=== PATIENT | female | born 1940 | race Caucasian/White ===

== ENCOUNTER 2020-10-28 12:32 | Inpatient (IN) | payer MEDICARE, BC ==
[~2020-10-28] VITALS: Ht 162.6 cm; Wt 100.8 kg
[~2020-10-28 12:32] MED LIST: NOHOMEMEDICATIONS
[2020-10-28 12:34] VITALS: BP 104/79
[2020-10-28] MEDS ORDERED: ASA81BEC PO (12:36)
[2020-10-28] MEDS ORDERED: VITAMIN D310 MCG PO (12:37)
[2020-10-28] MEDS ORDERED: CO Q-1010 MG PO (12:37)
[2020-10-28] MEDS ORDERED: PRAVACHOL40 MG PO (12:37)
[2020-10-28] MEDS ORDERED: THERAGRAN-M PR1 EAC1 PO (12:37)
[2020-10-28 12:51] LABS: ABSOLUTE BASOPHILS 0.1 thou/uL (0.0-0.2); ABSOLUTE EOSINOPHILS 0.1 thou/uL (0.0-0.7); ABSOLUTE LYMPHOCYTES 1.3 thou/uL (0.8-5.3); ABSOLUTE MONOCYTES 0.5 thou/uL (0.0-1.2); ABSOLUTE NEUTROPHILS 4.1 thou/uL (1.6-8.1); BASOPHILS 0.9 %; EOSINOPHILS 1.7 %; HEMATOCRIT 45.5 % (37.0-47.0); LYMPHOCYTES 21.5 %; MCH 29.3 pg (26.0-34.0); MCV 88.8 fL (80.0-100.0); MONOCYTES 7.7 %; MPV 9.6 fl. (7.2-11.1); NUCLEATED RBCS 0 /100WBC; PLATELET COUNT* 121 thou/uL (150-400); POLYS 68.2 %; RBC 5.12 mil/uL (4.20-5.00); RDW-CV 13.8 % (10.5-14.5)
[2020-10-28] MEDS ORDERED: TURMERIC COMPL1 EACH PO (12:53)
[2020-10-28 13:02] LABS: CALCIUM 9.3 mg/dL (8.5-10.1); CREATININE 0.8 mg/dL (0.6-1.3); POTASSIUM 4.2 mmol/L (3.5-5.1)
[2020-10-28 13:04] LABS: APTT 25.6 Seconds (25.0-31.3); PROTIME 10.7 Seconds (9.20-11.50)
[2020-10-28 13:12] LABS: ALBUMIN 3.6 g/dL (3.4-5.0); MAGNESIUM 2.2 mg/dL (1.8-2.4); TOTAL BILIRUBIN 0.5 mg/dL (<0.1-1.0); TOTAL PROTEIN 7.7 g/dL (6.4-8.2)
[2020-10-28 16:45] VITALS: BP 168/67
[2020-10-28 17:37] LABS: CHOLESTEROL 177 mg/dL (<200); HDL CHOLESTEROL 61 mg/dL (>40); LDL CHOLESTEROL 100 mg/dL (<100); SERUM ASSESSMENT Clear; TC:HDL 2.9 Ratio (Not establshd); TRIGLYCERIDE 83 mg/dL (<150); VLDL 17 mg/dL (<40)
[2020-10-28 20:00] VITALS: BP 143/53
[2020-10-28 23:40] VITALS: BP 151/57
[2020-10-29 03:25] VITALS: BP 150/66
[2020-10-29 08:00] VITALS: BP 163/67
[2020-10-29 14:09] VITALS: BP 163/67
--- NOTE | 2020-10-31 10:40 | EKG ---
[place] [address] ELECTROCARDIOGRAM REPORT Name: VIVIENNE HELMS Room: [address] IN [facility].#: [id number] Admission: 10/28/20 Attend Phys: Brittny Catalan, Discharge: 10/29/20 Date of : 38 Date of Service: 10/28/20 1240 Report #: [id number] THIS REPORT FOR: //name// [facility] ED Test Date: 2020-10-28 Test Time: 12:40:28 Pat Name: VIVIENNE HELMS Department: Room: [facility] Gender: F [employer]: LIBRADO : 1940 Requested By: Sree Proctor Order Number: [id number] MD: Sukhdev Bowles Measurements Intervals [place] Rate: 64 P: 31 OR: 164 QRS: -47 QRSD: 131 T: 27 QT: 504 QTc: 520 Interpretive Statements sinus bradycardia 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
== END 2020-10-29 14:15 | disposition home or self-care (01) | DRG 313 ==
LOC: M.ERS 12:32 → M.TBA-ER 13:53 → M.2W 16:48
PROVIDERS: Emergency Medicine Emergency Medical Services; Registered Nurse; ADMIT Internal Medicine; ATTEND Internal Medicine
DX: R07.89 Other chest pain (principal); I25.119 Atherosclerotic heart disease of native coronary artery with unspecified angina pectoris; E78.00 Pure hypercholesterolemia, unspecified; M25.512 Pain in left shoulder; E78.5 Hyperlipidemia, unspecified; M54.9 Dorsalgia, unspecified; Z20.822 Contact with and (suspected) exposure to COVID-19; Z79.82 Long term (current) use of aspirin; Z88.5 Allergy status to narcotic agent; Z79.899 Other long term (current) drug therapy; Z95.5 Presence of coronary angioplasty implant and graft